=== PATIENT | female | born 1965 | race Caucasian/White ===

== ENCOUNTER 2020-10-10 16:35 | Emergency (ER) | payer OTHER ==
[2020-10-10 16:49] VITALS: BP 98/63; PULSE 62; TEMP 98.1; BMI 25.4
[2020-10-10 19:02] LABS: BASO % 1.2 % (0-2.0); EOS % 4.3 % (0-4.5); HEMATOCRIT 38.8 % (32.4-45.2); HEMOGLOBIN 13.3 GM/dL (10.7-15.3); LYMPH % 24.9 % (8-40); MCH 31.2 pg (25.7-33.7); MCHC 34.4 g/dl (32.0-36.0); MEAN CELL VOLUME 90.7 fl (80-96); MEAN PLT VOLUME 7.7 fl (7.5-11.1); MONO % 7.1 % (3.8-10.2); NEUT % 62.5 % (42.8-82.8); PLATELET COUNT 311 10^3/uL (134-434); RBC 4.27 M/mm3 (3.60-5.2); RDW 13.2 % (11.6-15.6)
[2020-10-10 19:29] LABS: CALCIUM 9.1 mg/dL (8.5-10.1)
[2020-10-10 19:30] LABS: ALBUMIN 3.9 g/dl (3.4-5.0); BLOOD UREA NITROGEN 21.2 mg/dL (7-18)
[2020-10-10 19:33] LABS: BILIRUBIN,TOTAL 0.3 mg/dL (0.2-1); CREATININE 0.5 mg/dL (0.55-1.3)
== END 2020-10-10 20:54 | disposition home or self-care (01) ==
LOC: JER 16:35
DX: Z13.9 Encounter for screening, unspecified (principal)
CPT/HCPCS: 36415; 80053; 85025; 99283-25

== ENCOUNTER 2020-12-02 10:53 | Emergency (ER) | payer OTHER ==
[2020-12-02 11:45] VITALS: BP 128/79; PULSE 74; TEMP 98.1; BMI 25.2
[2020-12-02 12:53] LABS: BASO % 0.9 % (0-2.0); EOS % 2.4 % (0-4.5); HEMATOCRIT 39.2 % (32.4-45.2); HEMOGLOBIN 13.8 GM/dL (10.7-15.3); LYMPH % 21.7 % (8-40); MCH 31.8 pg (25.7-33.7); MCHC 35.2 g/dl (32.0-36.0); MEAN CELL VOLUME 90.3 fl (80-96); MEAN PLT VOLUME 7.9 fl (7.5-11.1); MONO % 6.2 % (3.8-10.2); NEUT % 68.8 % (42.8-82.8); PLATELET COUNT 333 10^3/uL (134-434); RBC 4.34 M/mm3 (3.60-5.2); RDW 13.1 % (11.6-15.6); WHITE BLOOD COUNT 5.7 K/mm3 (4.0-10.0)
== END 2020-12-02 14:00 | disposition home or self-care (01) ==
LOC: JER 10:53
DX: K64.8 Other hemorrhoids (principal)
CPT/HCPCS: 36415; 82272; 85025; 99283-25